=== PATIENT | female | born 1960 | race African-American/Black ===

== ENCOUNTER 2021-02-18 03:57 | Emergency (ER) | payer MEDICARE, OTHER ==
[~2021-02-18] VITALS: Ht 165.1 cm; Wt 60.3 kg
--- NOTE | 2021-02-18 04:09 | NUR ---
Dr. Harrington at bedside for MSE.
--- NOTE | 2021-02-18 04:10 | NUR ---
pt bib ra for body numbness and high blood sugar. pt denies pain or sob. A/O x3 able to speak in complete sentences.
[2021-02-18] MEDS ORDERED: IV NORMAL SALINE 1000 ML BAG IV ONE (04:15)
[2021-02-18] MEDS ORDERED: TRAZODONE 50 MG TABLET PO ONE (04:30)
[2021-02-18] MEDS ORDERED: SERTRALINE HCL 50 MG TABLET PO ONE (04:30)
[2021-02-18] MEDS ORDERED: SERTRALINE HCL 50 MG TABLET ONE (04:39)
[2021-02-18] MEDS ORDERED: TRAZODONE 50 MG TABLET ONE (04:39)
[2021-02-18 04:49] LABS: HEMATOCRIT 43.5 % (31.2-41.9); MEAN CORPUSCULAR HEMOGLOBIN 30.9 uug (24.7-32.8); MEAN CORPUSCULAR VOLUME 91.4 fL (75.5-95.3); PLATELET COUNT (AUTO) 256 K/uL (179-408)
[2021-02-18 04:55] LABS: CARBON DIOXIDE 26 mmol/L (21-32); CHLORIDE 98 mmol/L (98-107); CREATININE 0.8 mg/dL (0.6-1.3); POTASSIUM 5.1 mmol/L (3.5-5.1); UREA NITROGEN, BLOOD 16 mg/dL (7-18)
[2021-02-18 04:57] LABS: GLUCOSE 327 mg/dL (74-106)
[2021-02-18 05:00] LABS: ALANINE AMINOTRANSFERASE 37 U/L (14-59); ALKALINE PHOSPHATASE 141 U/L (50-136); ASPARTATE AMINOTRANSFERASE 29 U/L (15-37); BILIRUBIN,DIRECT 0.1 mg/dL (0.0-0.2); BILIRUBIN,TOTAL 0.7 mg/dL (0.2-1.0); TOTAL PROTEIN, SERUM 7.9 g/dL (6.4-8.2)
[2021-02-18] MEDS ORDERED: INSULIN REGULAR, HUMAN 300 UNIT/3 ML VIAL SQ ONE (05:00)
[2021-02-18] MEDS ORDERED: METFORMIN HCL 500 MG TABLET PO ONE (05:00)
[2021-02-18 05:03] LABS: ACETAMINOPHEN < 2.0 ug/mL (10-30)
[2021-02-18 05:05] LABS: ETHANOL < 3 MG/DL (0-0)
[2021-02-18] MEDS ORDERED: SERT50TA PO (05:07)
[2021-02-18] MEDS ORDERED: INSU3INS6 SQ (05:07)
[2021-02-18] MEDS ORDERED: TRAZ-257 PO (05:07)
[2021-02-18] MEDS ORDERED: METF-494 PO (05:07)
[2021-02-18 05:08] LABS: THYROID STIMULATING HORMONE 0.427 mIU/mL (0.358-3.740)
[2021-02-18] MEDS ORDERED: HYDR15CR41 TP (05:09)
[2021-02-18] MEDS ORDERED: INSULIN REGULAR, HUMAN 300 UNIT/3 ML VIAL ONE (05:15)
[2021-02-18] MEDS ORDERED: METFORMIN HCL 500 MG TABLET ONE (05:15)
--- NOTE | 2021-02-18 07:31 | NUR ---
Patient discharged to home in stable condition. Written and verbal after care instructions given. Patient verbalizes understanding of instructions. Stressed follow up or return to ER for worsening s/s.
[2021-02-18 07:34] VITALS: BP 125/80
--- NOTE | 2021-02-18 07:47 | NUR ---
Call to [employer] to transport to [facility] on [address]. ETA is 20 minutes.
== END 2021-02-18 07:48 | disposition home or self-care (01) ==
LOC: ER 04:06
DX: R20.2 Paresthesia of skin (principal); L30.9 Dermatitis, unspecified; E11.65 Type 2 diabetes mellitus with hyperglycemia; Z79.4 Long term (current) use of insulin; Z59.02 Unsheltered homelessness; F17.210 Nicotine dependence, cigarettes, uncomplicated; F25.9 Schizoaffective disorder, unspecified; Z76.0 Encounter for issue of repeat prescription
CPT/HCPCS: 36415; 80048; 80076; 80299; 80320; 82009; 84443; 85025; 87426; 96360; 96361; 96372; 99284; J1815; A4663; G0480; J7030

== ENCOUNTER 2021-05-14 11:31 | Emergency (ER) | payer MEDICARE, OTHER ==
[~2021-05-14] VITALS: Ht 165.1 cm; Wt 61.2 kg
[~2021-05-14 11:31] MED LIST: HYDR15CR41 TP; INSU3INS6 SQ; METF-494 PO; SERT50TA PO; TRAZ-257 PO
--- NOTE | 2021-05-14 11:40 | NUR ---
Dr Blandon at the bedside for MSE.
[2021-05-14] MEDS ORDERED: INSU3INS6 SQ (11:42)
[2021-05-14] MEDS ORDERED: DEPAKOTE (11:42)
[2021-05-14] MEDS ORDERED: IV NORMAL SALINE 1000 ML BAG IV ONE (11:45)
[2021-05-14 12:07] LABS: HEMATOCRIT 38.6 % (31.2-41.9); MEAN CORPUSCULAR HEMOGLOBIN 30.3 uug (24.7-32.8); MEAN CORPUSCULAR VOLUME 90.5 fL (75.5-95.3); PLATELET COUNT (AUTO) 218 K/uL (179-408)
[2021-05-14 12:17] LABS: CARBON DIOXIDE 27 mmol/L (21-32); CHLORIDE 97 mmol/L (98-107); CREATININE 0.9 mg/dL (0.6-1.3); POTASSIUM 4.5 mmol/L (3.5-5.1); UREA NITROGEN, BLOOD 18 mg/dL (7-18)
[2021-05-14 12:18] LABS: GLUCOSE 490 mg/dL (74-106)
[2021-05-14 12:30] LABS: ALANINE AMINOTRANSFERASE 39 U/L (14-59); ALKALINE PHOSPHATASE 128 U/L (50-136); ASPARTATE AMINOTRANSFERASE 21 U/L (15-37); BILIRUBIN,DIRECT 0.2 mg/dL (0.0-0.2); BILIRUBIN,TOTAL 0.6 mg/dL (0.2-1.0); TOTAL PROTEIN, SERUM 6.5 g/dL (6.4-8.2)
[2021-05-14] MEDS ORDERED: INSULIN REGULAR, HUMAN 300 UNIT/3 ML VIAL IV ONE (12:45)
[2021-05-14] MEDS ORDERED: INSULIN REGULAR, HUMAN 300 UNIT/3 ML VIAL ONE (12:56)
[2021-05-14 13:28] LABS: *BILIRUBIN,URIN NEGATIVE (NEGATIVE); *BLOOD, URINE NEGATIVE (NEGATIVE); *CLARITY,URINE CLEAR (CLEAR); *COLOR,URINE YELLOW (YELLOW); *KETONES,URINE NEGATIVE (NEGATIVE); *UROBILINOGEN,URINE 0.2 E.U./dl (NORMAL); LEUKOCYTE ESTERASE ,URINE NEGATIVE (NEGATIVE); NITRITE, URINE NEGATIVE (NEGATIVE)
[2021-05-14 13:32] LABS: UGLUCOSE 2+ (NEGATIVE)
[2021-05-14] MEDS ORDERED: GABA-532 PO (13:50)
--- NOTE | 2021-05-14 13:52 | NUR ---
Pt states feeling better and no longer has headache.
--- NOTE | 2021-05-14 14:33 | NUR ---
IV removed. Catheter intact and site benign. Pressure and 4x4 gauze applied to site. No bleeding noted.
[2021-05-14 14:35] VITALS: BP 143/66
== END 2021-05-14 14:36 | disposition home or self-care (01) ==
LOC: ER 11:31
DX: E10.42 Type 1 diabetes mellitus with diabetic polyneuropathy (principal); Z79.4 Long term (current) use of insulin; E10.65 Type 1 diabetes mellitus with hyperglycemia; Z20.822 Contact with and (suspected) exposure to COVID-19; F17.210 Nicotine dependence, cigarettes, uncomplicated; Z59.01 Sheltered homelessness; F25.9 Schizoaffective disorder, unspecified; Z88.6 Allergy status to analgesic agent; Z79.899 Other long term (current) drug therapy; R03.0 Elevated blood-pressure reading, without diagnosis of hypertension
CPT/HCPCS: 36415; 71045; 80048; 80076; 81003; 82009; 83605; 83880; 84484; 85025; 87040 ×2; 87086; 87426; 93005; 96361; 96374; 99285; 99406; J1815; A4663; J7030

== ENCOUNTER 2023-09-15 19:43 | Emergency (ER) | payer MEDICARE, OTHER ==
[~2023-09-15] VITALS: Ht 165.1 cm; Wt 61.2 kg
[~2023-09-15 19:43] MED LIST changes: +DEPAKOTE; +GABA-532 PO; -HYDR15CR41 TP
[2023-09-15] MEDS: IV NORMAL SALINE 1000 ML BAG IV ONE (23:58)
[2023-09-16 00:24] LABS: BASOPHILS # (AUTO) 0.1 K/UL (0.0-0.2); BASOPHILS % (AUTO) 1.1 % (0.0-2.0); EOSINOPHILS # (AUTO) 0.2 K/uL (0.0-0.7); EOSINOPHILS % (AUTO) 2.1 % (0.0-7.0); HEMOGLOBIN 13.6 g/dL (10.9-14.3); LYMPHOCYTES # (AUTO) 3.2 K/uL (0.8-4.8); LYMPHOCYTES % (AUTO) 42.1 % (20.5-51.5); MEAN CORPUSCULAR HEMOGLOBIN 31.2 uug (24.7-32.8); MEAN CORPUSCULAR HGB CONC 34 g/dL (32.3-35.6); MEAN CORPUSCULAR VOLUME 91.6 fL (75.5-95.3); MONOCYTES # (AUTO) 0.4 K/uL (0.1-1.30); MONOCYTES % (AUTO) 5.3 % (0.0-11.0); NEUTROPHILS # (AUTO) 3.7 K/uL (1.8-8.9); NEUTROPHILS % (AUTO) 49.4 % (38.5-71.5); PLATELET COUNT (AUTO) 314 K/uL (179-408); RED BLOOD CELL COUNT(AUTO) 4.37 MIL/uL (3.63-4.92); RED CELL DISTRIBUTION WIDTH 14.3 % (12.3-17.7); WHITE BLOOD COUNT (AUTO) 7.5 K/uL (3.8-11.8)
[2023-09-16 00:25] LABS: DIFFERENTIAL COMMENT 1
[2023-09-16 00:32] LABS: CALCIUM 9.6 mg/dL (8.5-10.1); CREATININE 0.9 mg/dL (0.6-1.3)
[2023-09-16 00:38] LABS: ALBUMIN 3.7 g/dL (3.4-5.0); BILIRUBIN,DIRECT 0.1 mg/dL (0.0-0.2); BILIRUBIN,TOTAL 0.3 mg/dL (0.2-1.0); TOTAL PROTEIN, SERUM 7.4 g/dL (6.4-8.2)
[2023-09-16 01:28] VITALS: BP 147/84; O2SAT 99
== END 2023-09-16 02:54 | disposition home or self-care (01) ==
LOC: ER 19:45
DX: R20.0 Anesthesia of skin (principal); E10.51 Type 1 diabetes mellitus with diabetic peripheral angiopathy without gangrene; E10.65 Type 1 diabetes mellitus with hyperglycemia; F32.A Depression, unspecified; F20.9 Schizophrenia, unspecified; F17.210 Nicotine dependence, cigarettes, uncomplicated; Z79.84 Long term (current) use of oral hypoglycemic drugs; Z79.4 Long term (current) use of insulin; Z79.899 Other long term (current) drug therapy; Z88.1 Allergy status to other antibiotic agents
CPT/HCPCS: 36415; 85025; A4606; A4663; J7040

== ENCOUNTER 2023-10-03 21:52 | Emergency (ER) | payer MEDICARE, MEDICAID ==
[~2023-10-03] VITALS: Ht 165.1 cm; Wt 61.2 kg
[2023-10-03 22:47] LABS: CALCIUM 8.7 mg/dL (8.5-10.1); CREATININE 0.8 mg/dL (0.6-1.3); POTASSIUM 3.9 mmol/L (3.5-5.1)
[2023-10-03 22:52] LABS: ALBUMIN 3.1 g/dL (3.4-5.0); BILIRUBIN,TOTAL 0.3 mg/dL (0.2-1.0); MAGNESIUM 1.5 mg/dL (1.8-2.4); TOTAL PROTEIN, SERUM 6.2 g/dL (6.4-8.2)
[2023-10-03 22:53] LABS: BASOPHILS # (AUTO) 0.1 K/UL (0.0-0.2); BASOPHILS % (AUTO) 0.7 % (0.0-2.0); EOSINOPHILS # (AUTO) 0.1 K/uL (0.0-0.7); EOSINOPHILS % (AUTO) 1.8 % (0.0-7.0); HEMATOCRIT 35.5 % (31.2-41.9); HEMOGLOBIN 11.8 g/dL (10.9-14.3); LYMPHOCYTES # (AUTO) 2.5 K/uL (0.8-4.8); LYMPHOCYTES % (AUTO) 34.2 % (20.5-51.5); MEAN CORPUSCULAR HEMOGLOBIN 30.7 uug (24.7-32.8); MEAN CORPUSCULAR HGB CONC 33 g/dL (32.3-35.6); MEAN CORPUSCULAR VOLUME 92.2 fL (75.5-95.3); MONOCYTES # (AUTO) 0.3 K/uL (0.1-1.30); MONOCYTES % (AUTO) 4.4 % (0.0-11.0); NEUTROPHILS # (AUTO) 4.4 K/uL (1.8-8.9); NEUTROPHILS % (AUTO) 58.9 % (38.5-71.5); PLATELET COUNT (AUTO) 271 K/uL (179-408); RED BLOOD CELL COUNT(AUTO) 3.85 MIL/uL (3.63-4.92); RED CELL DISTRIBUTION WIDTH 13.8 % (12.3-17.7); WHITE BLOOD COUNT (AUTO) 7.4 K/uL (3.8-11.8)
[2023-10-03 22:56] LABS: DIFFERENTIAL COMMENT 1
[2023-10-03] MEDS ORDERED: MAGNESIUM OXIDE 400 MG TABLET ONE ×2 (23:09→23:13)
[2023-10-03] MEDS: MAGNESIUM OXIDE 400 MG TABLET PO ONE (23:17)
[2023-10-03 23:36] VITALS: BP 134/74; TEMP 98.6; O2SAT 99
== END 2023-10-04 00:50 | disposition home or self-care (01) ==
LOC: ER 21:53
DX: E10.42 Type 1 diabetes mellitus with diabetic polyneuropathy (principal); R00.2 Palpitations; E10.65 Type 1 diabetes mellitus with hyperglycemia; E83.42 Hypomagnesemia; R20.2 Paresthesia of skin; F32.A Depression, unspecified; F20.9 Schizophrenia, unspecified; F17.200 Nicotine dependence, unspecified, uncomplicated; Z79.4 Long term (current) use of insulin; Z79.899 Other long term (current) drug therapy; Z88.8 Allergy status to other drugs, medicaments and biological substances
CPT/HCPCS: 36415; 71045; 83735; 85025; 93005; A4606; A4663

== ENCOUNTER 2023-10-12 21:34 | Emergency (ER) | payer MEDICARE, MEDICAID ==
[~2023-10-12] VITALS: Ht 165.1 cm; Wt 61.2 kg
[2023-10-12 21:59] LABS: BASOPHILS # (AUTO) 0.1 K/UL (0.0-0.2); EOSINOPHILS # (AUTO) 0.1 K/uL (0.0-0.7); EOSINOPHILS % (AUTO) 2.4 % (0.0-7.0); HEMATOCRIT 38.4 % (31.2-41.9); HEMOGLOBIN 12.7 g/dL (10.9-14.3); LYMPHOCYTES # (AUTO) 2.3 K/uL (0.8-4.8); LYMPHOCYTES % (AUTO) 41.2 % (20.5-51.5); MEAN CORPUSCULAR HEMOGLOBIN 30.6 uug (24.7-32.8); MEAN CORPUSCULAR HGB CONC 33 g/dL (32.3-35.6); MEAN CORPUSCULAR VOLUME 92.8 fL (75.5-95.3); MONOCYTES # (AUTO) 0.3 K/uL (0.1-1.30); MONOCYTES % (AUTO) 5.9 % (0.0-11.0); NEUTROPHILS # (AUTO) 2.7 K/uL (1.8-8.9); NEUTROPHILS % (AUTO) 49.5 % (38.5-71.5); PLATELET COUNT (AUTO) 236 K/uL (179-408); RED BLOOD CELL COUNT(AUTO) 4.14 MIL/uL (3.63-4.92); RED CELL DISTRIBUTION WIDTH 13.6 % (12.3-17.7); WHITE BLOOD COUNT (AUTO) 5.5 K/uL (3.8-11.8)
[2023-10-12 22:02] LABS: DIFFERENTIAL COMMENT 1
[2023-10-12 22:05] LABS: ACETONE, SERUM NEGATIVE (NEGATIVE); CARBON DIOXIDE 29 mmol/L (21-32); CHLORIDE 103 mmol/L (98-107); CREATININE 0.9 mg/dL (0.6-1.3); GLUCOSE 213 mg/dL (74-106); POTASSIUM 4.9 mmol/L (3.5-5.1); SODIUM SERUM 138 mmol/L (136-145); UREA NITROGEN, BLOOD 19 mg/dL (7-18)
[2023-10-12 23:22] VITALS: BP 106/72; TEMP 97.6; O2SAT 98
== END 2023-10-12 23:23 | disposition home or self-care (01) ==
LOC: ER 21:38
DX: R20.2 Paresthesia of skin (principal); E11.65 Type 2 diabetes mellitus with hyperglycemia; F20.9 Schizophrenia, unspecified; F32.A Depression, unspecified; F17.210 Nicotine dependence, cigarettes, uncomplicated; Z79.4 Long term (current) use of insulin; Z79.84 Long term (current) use of oral hypoglycemic drugs; Z79.899 Other long term (current) drug therapy; Z88.1 Allergy status to other antibiotic agents
CPT/HCPCS: 36415; 85025; A4606; A4663